=== PATIENT | male | born 1950 | race Caucasian/White ===

== ENCOUNTER 2016-07-31 12:35 | Emergency (ER) | payer MEDICARE ==
[2016-07-31] MEDS ORDERED: ALBUTEROL SULFATE 2.5 MG/3 ML VIAL.NEB IH ONE ×2 (12:49→14:43)
[2016-07-31] MEDS ORDERED: NORMAL SALINE 1,000 ML IV ONE (12:49)
[2016-07-31] MEDS ORDERED: METHYLPREDNISOLONE SOD SUCC/PF 40 MG/ML VIAL IV ONE (12:49)
[2016-07-31 12:55] LABS: Hematocrit 51.8 % (42.0-52.0); Hemoglobin 17.8 gm/dL (13.5-18.0); Mean Cell Volume 92.2 fl (78-100); Mean Corpuscular Hemoglobin 31.7 pg (27-31); Mean Corpuscular Hgb Conc 34.4 g/dl (32-36); Mean Platelet Volume 10.3 fl (6.0-9.5); Neutrophil # 5.7 K/mm3 (1.3-6.0); Neutrophil % 65.8 % (42-75.0); Platelet Count 237 K/mm3 (150-450); Red Blood Count 5.62 M/mm3 (4.7-6.0); Red Cell Distribution Width 14.3 % (11.5-14.0); White Blood Count 8.7 K/mm3 (4.0-10.5)
--- NOTE | 2016-07-31 12:59 | ERNOTE ---
Dyspnea - Date Date of Service: 07/31/16 - General Presenting Symptoms: shortness of breath Time Seen by Provider: 07/31/16 12:40 Source: patient, family Exam Limitations: no limitations - Immun/Allergies/Home Medications Allergies/Adverse Reactions: Allergies No Known Allergies Allergy (Unverified 07/31/16 12:55) Home Medications: HOME MEDICATIONS Albuterol Sulfate [Proair Respiclick] 90 mcg IH DAILY 07/31/16 [Last Taken Unknown] Levofloxacin [Levaquin] 500 mg PO DAILY #14 tab 07/31/16 [Last Taken Unknown] Tiotropium [place] [Spiriva] 18 mcg IH DAILY 07/31/16 [Last Taken Unknown] predniSONE [Prednisone] 3 tab PO BID #84 tab 07/31/16 [Last Taken Unknown] - History of Present Illness Narrative: About a week ago, began to become SOB, with a productive cough. Steadily worsening. Lying down made it worse. Chills and sweats, but didn't take his temperature. Swallowed the phlegm, so doesn't know what it looks like. Hurts to breathe. Came in a private car to the ER today, because he felt like he couldn't breathe at all. Smokes, but down to one cigarette per day today. also trying to quit smoking. [facility]. Severity: moderate Treatment HOISTER: other - usual meds for his COPD Initiating event: Reports: unknown Frequency of episodes: Reports: occassional episodes Modifying Factors - (Improves): Reports: nothing Modifying Factors (Worsens): Reports: activity, lying down Associated Symptoms-Dyspnea: Reports: sweating, cough, wheezing, weakness Prior Treatment: Reports: previous episodes. Denies: currently on antibiotics Review of Systems - Review of Systems Constitutional: Present: See HPI EYE: Present: no symptoms reported ENT: Present: no symptoms reported Respiratory: Present: See HPI Cardiology: Present: chest pain Gastrointestinal/Abdominal: Present: no symptoms reported Genitourinary: Present: no symptoms reported Musculoskeletal: Present: no symptoms reported Neurological: Present: no symptoms reported Endocrine: Present: no symptoms reported Hematologic/Lymphatic: Present: no symptoms reported Psych: Present: no symptoms reported All Other Systems: All systems neg except as marked - Patient's Past Medical History Patient History - Medical: No pertinent hx Patient History - Cardiac/Respiratory: COPD Patient History - Cancer: No Hx of Cancer Patient History - Surgical Procedures: No surgical history - Social History Smoking Status: Current every day smoker Physical Exam - Physical Exam General Appearance: Present: wd/wn, alert, mild distress, moderate distress Eye Exam: Normal inspection: bilateral, PERRL: bilateral, EOMI: bilateral Ears, Nose, Throat: Present: normal ENT inspection Neck: Present: normal inspection Respiratory: Present: respiratory distress, accessory muscle use, decreased breath sounds, expiration (prolonged), wheezing Cardiovascular/Chest: Present: regular rate, rhythm, no murmur Gastrointestinal/Abdominal: Present: normal bowel sounds, nontender, nondistended, soft, no organomegaly Back Exam: Present: normal range of motion Extremity Exam: Present: normal inspection, no edema Neurological Exam: Present: alert, oriented Skin Exam: Present: normal color, warm/dry ED Progress - Results and Orders Patient's Lab Results:: I have reviewed the patient's lab results. - Vital Signs Patient's Vital Signs:: I have reviewed the patient's vital signs. - X-Ray X-Ray #1 X-Ray: chest Interpretation: Interp. by me - non acutea - Progress/Reassessment Chief Complaint: Dyspnea Progress:: Improved Progress Note-Subjective: 07/31/16 14:41 He is a "little better." I notice he appears fairly comfortable, reading a [employer] magazine. We will repeat an albuterol treatment. 07/31/16 15:43 He is much better. Daughter is graduating in 4 days. 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 07/31/16. 1544. Departure Clinical Impression: Acute exacerbation of chronic bronchitis - Departure Disposition: Home self-care Condition: Good Instructions: Chronic Obstructive Pulmonary Disease Exacerbation, [id number] Additional Instructions: Stop smoking. Call the [facility] Tuesday. See them within the next 2 weeks. Prescriptions: Levofloxacin [Levaquin] 500 mg PO DAILY #14 tab predniSONE [Prednisone] 3 tab PO BID #84 tab
[2016-07-31] MEDS ORDERED: ALBUTEROL SULFATE 2.5 MG/0.5 ML VIAL.NEB IH ONE ×2 (13:02→14:45)
[2016-07-31 13:06] LABS: Prothrombin Time (Patient) 10.2 Seconds (9.4-11.4)
[2016-07-31 13:07] LABS: INR 0.98 INR (0.90-1.10); Partial Thrombolplastin Time 25.3 Seconds (24-32)
[2016-07-31 13:12] LABS: ALT 26 U/L (19-67); AST 22 U/L (0-48); Alkaline Phosphatase * 63 U/L (50-170); Anion Gap 9.7 mmol/L (6.8-13.8); BUN/Creatinine Ratio 14.9 (9.0-21.6); Bilirubin, Total 0.5 mg/dL (0.0-1.1); Blood Urea Nitrogen 14 mg/dL (6-23); Ca. Corrected For Albumin 9.2 mg/dL (8.4-10.2); Calcium * 9.5 mg/dL (7.9-10.9); Carbon Dioxide 32.8 mmol/L (24-32.6); Chloride 100 mmol/L (97-106); Glucose * 97 mg/dL (70-110); Potassium 4.5 mmol/L (3.4-4.6); Sodium 138 mmol/L (132-142); Total Protein 7.5 gm/dL (6.2-8.2)
[2016-07-31 13:13] LABS: Troponin I Less than 0.017 ng/ml (0.00-0.10)
[2016-07-31] MEDS ORDERED: METHYLPREDNISOLONE SOD SUCC/PF 125 MG/2 ML VIAL ONE (14:13)
[2016-07-31 15:41] VITALS: BP 146/80
== END 2016-07-31 15:54 | disposition home or self-care (01) ==
LOC: ER 12:35
DX: J20.9 Acute bronchitis, unspecified (principal); J44.1 Chronic obstructive pulmonary disease with (acute) exacerbation; Z72.0 Tobacco use